=== PATIENT | female | born 1990 | race Caucasian/White ===

== ENCOUNTER 2017-05-10 11:04 | Inpatient (IN) | payer OTHER ==
[~2017-05-10] VITALS: Ht 157.4 cm; Wt 56.8 kg
[2017-05-10 12:00] VITALS: BP 114/61
[2017-05-10 12:50] VITALS: BP 114/61
[2017-05-10 13:48] LABS: BILIRUBIN NEGATIVE (NEGATIVE); BLOOD NEGATIVE (NEGATIVE); CLARITY SL CLOUDY (CLEAR); COLOR YELLOW (YELLOW); GLUCOSE NEGATIVE (NEGATIVE); KETONE NEGATIVE (NEGATIVE); LEUKO ESTERASE 1+ (NEGATIVE); NITRITE NEGATIVE (NEGATIVE); UROBILINOGEN 0.2 E.U./dl (0.2-1.0)
[2017-05-10 13:48] LABS: HEMATOCRIT 37.6 % (37.0-47.0); MEAN CELL VOLUME 79.3 fl (81.0-99.0); MEAN CORPUSCULAR HGB 25.3 pg (27.0-31.0); MEAN CORPUSCULAR HGB CONC 31.9 g/dl (33.0-37.0); MEAN PLATELET VOLUME 9.6 fl (9.6-12.3); NUCLEATED RED BLOOD CELL 0.2 % (0.0-0.0); PLATELET COUNT AUTOMATED 323 10*3/uL (130-400); RED BLOOD COUNT 4.74 10*6/uL (4.10-5.10); RED CELL DISTRI WIDTH 18.2 % (0-14.5); WHITE BLOOD COUNT 13.2 10*3/uL (4.8-10.8)
[2017-05-10 14:01] LABS: ALBUMIN 3.9 gm/dl (3.1-4.5); ALKALINE PHOSPHATASE 59 U/L (45-117); BUN 10 mg/dl (7-24); CHLORIDE 105 mmol/L (98-107); CREATININE 0.69 mg/dL (0.55-1.02); SGOT/AST 8 IU/L (3-35); SGPT/ALT 22 U/L (12-78); SODIUM 141 mmol/L (136-145); TOTAL PROTEIN 7.7 gm/dL (6.4-8.2)
[2017-05-10 14:07] LABS: BACTERIA 2+
[2017-05-10 14:08] LABS: BETA-HCG, QUANT < 1.0 mIU/mL (1-3); ETHYL ALCOHOL < 3.0 mg/dl (<3)
[2017-05-10 14:18] LABS: POLYCHROMASIA SLIGHT; TOTAL CELLS COUNTED 100 #CELLS
[2017-05-10 14:19] LABS: MICROCYTOSIS SLIGHT; OVALOCYTES FEW; PLATELET SUFFICIENCY NORMAL (NORMAL)
[2017-05-10 15:38] LABS: URINE AMPHETAMINES < 1000 (1000ng/ml); URINE BARBITURATES < 200 (200ng/ml); URINE BENZODIAZEPINES < 200 (200ng/ml); URINE METHADONE < 300 (300ng/ml)
[2017-05-10 15:41] LABS: URINE CANNABINOIDS (THC) > 50 (50ng/ml); URINE COCAINE < 300 (300ng/ml); URINE OPIATES < 300 (300ng/ml); URINE PHENCYCLIDINE < 25 (25ng/ml)
[2017-05-10 16:00] VITALS: BP 136/65
[2017-05-10 20:00] VITALS: BP 137/88
[2017-05-11] VITALS: BP 106/54
[2017-05-11 04:00] VITALS: BP 121/68
[2017-05-11 08:00] VITALS: BP 111/68
[2017-05-11 12:00] VITALS: BP 118/70
[2017-05-11 16:00] VITALS: BP 123/59
[2017-05-11 20:00] VITALS: BP 139/61
[2017-05-12] VITALS: BP 105/55
[2017-05-12 08:00] VITALS: BP 97/63
[2017-05-12 12:00] VITALS: BP 139/88
[2017-05-12 16:00] VITALS: BP 107/68
[2017-05-12 20:00] VITALS: BP 133/72
[2017-05-13] VITALS: BP 136/62
[2017-05-13 06:45] LABS: BASO % 0.6 % (0.0-1.0); EOS # 0.5 10*3/uL (0.0-0.4); EOS % 7.4 % (1.0-4.0); HEMATOCRIT 32.8 % (37.0-47.0); HEMOGLOBIN 10.6 g/dl (12.0-16.0); LYMPH # 1.4 10*3/uL (1.3-4.4); LYMPH % 22.6 % (27.0-41.0); MEAN CELL VOLUME 80.8 fl (81.0-99.0); MEAN CORPUSCULAR HGB 26.1 pg (27.0-31.0); MEAN CORPUSCULAR HGB CONC 32.3 g/dl (33.0-37.0); MEAN PLATELET VOLUME 9.2 fl (9.6-12.3); MONO # 0.5 10*3/uL (0.1-1.0); NEUT # 3.9 10*3/uL (2.3-7.9); NEUT % 60.6 % (47.0-73.0); NUCLEATED RED BLOOD CELL 0.3 % (0.0-0.0); PLATELET COUNT AUTOMATED 209 10*3/uL (130-400); RED BLOOD COUNT 4.06 10*6/uL (4.10-5.10); RED CELL DISTRI WIDTH 17.4 % (0-14.5); WHITE BLOOD COUNT 6.4 10*3/uL (4.8-10.8)
[2017-05-13 07:29] LABS: CREATININE 0.84 mg/dL (0.55-1.02)
[2017-05-13 08:00] VITALS: BP 116/57
[2017-05-13 12:00] VITALS: BP 116/57
[2017-05-13] MEDS ORDERED: ATARAX,VISTARIL50 MG PO (12:06)
[2017-05-13] MEDS ORDERED: ZOFRAN 4 MG ED2 TAB PO (12:06)
[2017-05-13] MEDS ORDERED: SEPTDS PO (13:04)
== END 2017-05-13 13:59 | disposition home or self-care (01) | DRG 897 ==
LOC: EDHOLD 11:04 → 5E 11:04
PROVIDERS: Internal Medicine; Registered Nurse
DX: F11.23 Opioid dependence with withdrawal (principal); E83.51 Hypocalcemia; N39.0 Urinary tract infection, site not specified; F12.90 Cannabis use, unspecified, uncomplicated; D72.829 Elevated white blood cell count, unspecified; F17.200 Nicotine dependence, unspecified, uncomplicated; Z82.49 Family history of ischemic heart disease and other diseases of the circulatory system; Z71.6 Tobacco abuse counseling; G35 Multiple sclerosis